=== PATIENT | female | born 1995 | race Two or more races ===

== ENCOUNTER 2017-11-08 03:52 | Emergency (ER) | payer SELFPAY ==
[~2017-11-08] VITALS: Ht 157.5 cm; Wt 59.0 kg
[2017-11-08] MEDS ORDERED: MORPHINE SULFATE 4 MG/ML SYRINGE IVP ONE (04:30)
[2017-11-08 04:44] VITALS: BP 125/79
[2017-11-08] MEDS ORDERED: CeFAZolin SODIUM 1 GM in DEXTROSE 5%-WATER 10 ML IV SCH (04:45)
== END 2017-11-08 05:15 | disposition short-term general hospital (02) ==
LOC: EMS 03:54
DX: S01.452A Open bite of left cheek and temporomandibular area, initial encounter (principal); W54.0XXA Bitten by dog, initial encounter; Y93.89 Activity, other specified; Y92.89 Other specified places as the place of occurrence of the external cause; Y99.8 Other external cause status
CPT/HCPCS: 96365; 96375; 99285; J0690; J2270; J7060